=== PATIENT | male | born 1970 | race Caucasian/White ===

== ENCOUNTER → 2017-05-12 | Outpatient (CLI) | payer OTHER ==
[~2017-05-12] MED LIST: LASIX 20 MG TAB20 MG PO; PERCOCET PO; POTASSIUM20 PO
== END | disposition home or self-care (01) ==
LOC: LITH 08:30
DX: N20.1 Calculus of ureter (principal); Z98.890 Other specified postprocedural states
CPT/HCPCS: 52317; 52318